=== PATIENT | female | born 1960 ===

== ENCOUNTER 2017-04-28 19:37 | Emergency (ER) | payer MEDICARE, OTHER ==
--- NOTE | 2017-04-28 20:57 | C.PDOC ---
History Of Present Illness 56 y/o female presents for evaluation of swollen bug bites which have been worsening over the past 5 days. was on a cruise in [place], where she initially noticed the bug bites to her right buttock region and left lower abdomen. Patient notes they were initially quarter-sized and red. Admits she scratched them, popping the lesions, which have been draining since then. No fever, chills, nausea, vomiting, or diarrhea. Now complaining of pain and drainage at the site of the bites. PMD: Dr. Nancy Crum Time Seen by Provider: 04/28/17 20:56 Chief Complaint (Nursing): Abnormal Skin Integrity History Per: Patient History/Exam Limitations: no limitations Onset/Duration Of Symptoms: Worse Since (5 days ago) Current Symptoms Are (Timing): Still Present Location Of Injury: Right: Buttock, Left: Abdomen Quality Of Symptoms: Painful, Itching, Swollen, Draining Severity: Moderate Recent travel outside of the [place]: Yes (to [place]) Past Medical History Reviewed: Historical Data, Nursing Documentation, Vital Signs Vital Signs: Last Vital Signs Temp 98 F 04/28/17 20:25 Pulse 89 04/28/17 20:25 Resp 20 04/28/17 20:25 BP 153/84 H 04/28/17 20:25 Pulse Ox 99 04/28/17 21:33 - Medical History PMH: Diabetes, HTN Family History: States: No Known Family Hx - Social History Hx Alcohol Use: Yes Hx Substance Use: No - Immunization History Hx Tetanus Toxoid Vaccination: No Hx Influenza Vaccination: No Hx Pneumococcal Vaccination: No Review Of Systems Constitutional: Negative for: Fever, Chills Gastrointestinal: Negative for: Nausea, Vomiting, Diarrhea Skin: Positive for: Lesions (swollen, itchy lesions to right buttock and left abdomen, + drainage) Physical Exam - Physical Exam Appears: Non-toxic, No Acute Distress Skin: Warm, Dry, Other (Right buttock: 10 cm erythematous, indurated area with central purulent drainage. No fluctuance noted. Left lower abdomen: 5 cm erythematous region with induration, non-fluctuant, with some purulent drainage noted) Head: Normacephalic Eye(s): bilateral: Normal Inspection Oral Mucosa: Moist Neck: Trachea Midline, Supple Chest: Symmetrical Cardiovascular: Rhythm Regular Respiratory: No Rales, No Rhonchi, No Wheezing Gastrointestinal/Abdominal: Soft, No Tenderness, No Distention Back: Normal Inspection Extremity: Normal ROM Extremity: Bilateral: Atraumatic, Normal Color And Temperature Neurological/Psych: Oriented x3 Gait: Steady ED Course And Treatment - Laboratory Results Result Diagrams: 04/28/17 22:18 04/28/17 22:18 O2 Sat by Pulse Oximetry: 99 (RA) Pulse Ox Interpretation: Normal Progress Note: Ordered blood work and VBG. Started patient on IV fluids, Zosyn, and Vancomycin. Reevaluation Time: 23:56 Reassessment Condition: Improved Disposition Counseled Patient/Family Regarding: Studies Performed, Diagnosis, Need For Followup, Rx Given - Disposition Referrals: Nancy Crum MD [Staff Provider] - Disposition: HOME/ ROUTINE Disposition Time: 20:57 Condition: FAIR Additional Instructions: Please return if symptoms recur Prescriptions: Cephalexin [Keflex] 500 mg PO QID #28 capsule Sulfamethoxazole/Trimethoprim [Bactrim DS 800 mg-160 mg] 1 tab PO BID #14 tab Instructions: Skin Abscess Forms: [employer] (Niuean) - Clinical Impression Clinical Impression: Abscess - Scribe Statement The provider has reviewed the documentation as recorded by the Scribe (Rebekah Ocasio) Provider Attestation: All medical record entries made by the Scribe were at my direction and personally dictated by me. I have reviewed the chart and agree that the record accurately reflects my personal performance of the history, physical exam, medical decision making, and the department course for this patient. I have also personally directed, reviewed, and agree with the discharge instructions and disposition.
[2017-04-28] MEDS ORDERED: Piperacillin/Tazobact 3.375 GM in Sodium Chloride 100 ML IVPB STA (21:15)
[2017-04-28] MEDS ORDERED: Sodium Chloride 0.9% 1,000 ML IV ONE (21:15)
[2017-04-28 22:18] LABS: VENOUS BLOOD GAS BASE EXCESS -1.3 mmol/L (0.0-2.0); VENOUS BLOOD GAS PCO2 43 mmHg (40-60); VENOUS BLOOD GAS PO2 24 mm/Hg (30-55); VENOUS BLOOD PH 7.36 (7.32-7.43)
[2017-04-28 22:23] LABS: BASO # 0.1 K/uL (0.0-0.2); BASO % 0.9 % (0.0-2.0); EOS # 0.3 K/uL (0.0-0.7); EOS % 4.1 % (0.0-4.0); HEMOGLOBIN 12.7 g/dL (11.0-16.0); LYMPH # 2.6 K/uL (1.0-4.3); LYMPH % 34.6 % (20.0-40.0); MEAN CELL VOLUME 84.3 fL (81.0-99.0); MEAN CORPUSCULAR HEMOGLOBIN 28.2 pg (27.0-31.0); MEAN CORPUSCULAR HGB CONC 33.5 g/dL (33.0-37.0); MEAN PLATELET VOLUME 8.8 fL (7.2-11.7); MONO # 0.6 K/uL (0.0-0.8); MONO % 7.5 % (0.0-10.0); NEUT % 52.9 % (50.0-75.0); RBC 4.51 Mil/uL (3.80-5.20); RED CELL DISTRIBUTION WIDTH 13.3 % (11.5-14.5); WHITE BLOOD COUNT 7.5 K/uL (4.8-10.8)
[2017-04-28] MEDS ORDERED: Sodium Chloride 0.9% 1,000 ML ONE (22:32)
[2017-04-28] MEDS ORDERED: Piperacillin/Tazobact 3.375 gm 100 ML IVPB ONE (22:33)
[2017-04-28 22:41] LABS: BLOOD UREA NITROGEN 23 mg/dL (7-17); CALCIUM 9.6 mg/dl (8.6-10.4); GFR AFRICAN-AMERICAN > 60; GFR NON-AFRICAN AMERICAN 51
[2017-04-28] MEDS ORDERED: Vancomycin 1 gm/NS 200 ml 1 GM/200 ML BAG IVPB ONE (23:00)
[2017-04-29 01:52] VITALS: BP 123/81; PULSE 67; RESP 16; TEMP 97.8; O2SAT 100
== END 2017-04-29 01:52 | disposition home or self-care (01) ==
LOC: C.ER 19:37
DX: L02.31 Cutaneous abscess of buttock (principal); L02.211 Cutaneous abscess of abdominal wall
CPT/HCPCS: 80048; 82803; 85025; 96365; 96366; 96367; 99283; J2543; J3370; J7040; J7050

== ENCOUNTER 2017-05-13 16:15 | Inpatient (IN) | payer MEDICARE, OTHER ==
[2017-05-13] MEDS ORDERED: Sodium Chloride 0.9% 1,000 ML IV ONE (17:00)
--- NOTE | 2017-05-13 17:17 | C.PDOC ---
History Of Present Illness Pt likely had insect bites while on vacation in [place]. She was seen here 2 weeks ago and given course of oral antibiotics with improvement of the abdominal lesion, however the buttock lesion is still painful, open and draining. Time Seen by Provider: 05/13/17 16:48 Chief Complaint (Nursing): Abnormal Skin Integrity History Per: Patient Onset/Duration Of Symptoms: Days (about 3 weeks) Current Symptoms Are (Timing): Still Present Location Of Injury: Right: Buttock, Left: Abdomen (lower) Quality Of Symptoms: Painful, Swollen, Draining Severity: Moderate Additional History Per: Prior Records Past Medical History Reviewed: Historical Data, Nursing Documentation, Vital Signs Vital Signs: Last Vital Signs Temp 98 F 05/13/17 16:34 Pulse 96 H 05/13/17 16:34 Resp 18 05/13/17 16:34 BP 150/93 H 05/13/17 16:34 Pulse Ox 99 05/13/17 17:18 - Medical History PMH: Diabetes, HTN Other Surgeries: Hysterectomy Family History: States: Unknown Family Hx - Social History Hx Alcohol Use: Yes Hx Substance Use: No - Immunization History Hx Tetanus Toxoid Vaccination: No Hx Influenza Vaccination: No Hx Pneumococcal Vaccination: No Review Of Systems Except As Marked, All Systems Reviewed And Found Negative. Constitutional: Negative for: Fever Eyes: Negative for: Eyelid Inflammation, Redness ENT: Negative for: Mouth Pain, Mouth Swelling, Throat Pain, Throat Swelling Cardiovascular: Negative for: Chest Pain Respiratory: Negative for: Shortness of Breath Gastrointestinal: Negative for: Vomiting, Abdominal Pain Genitourinary: Negative for: Dysuria Musculoskeletal: Negative for: Neck Pain Skin: Positive for: Lesions Neurological: Negative for: Weakness, Numbness, Seizures, Altered Mental Status , Headache Physical Exam - Physical Exam Appears: Non-toxic, No Acute Distress Skin: Warm, Other (Open wound with surrounding induration on right buttock. Small area of induration on lower abdomen. ) Head: Atraumatic, Normacephalic Eye(s): bilateral: Normal Inspection, PERRL, EOMI Neck: Normal ROM, Supple Cardiovascular: Rhythm Regular Respiratory: Normal Breath Sounds, No Accessory Muscle Use Gastrointestinal/Abdominal: Soft, No Tenderness Back: No CVA Tenderness Extremity: Normal ROM Neurological/Psych: Oriented x3, Normal Motor, Normal Sensation ED Course And Treatment - Laboratory Results Result Diagrams: 05/13/17 17:23 05/13/17 17:23 O2 Sat by Pulse Oximetry: 99 Pulse Ox Interpretation: Normal Progress - Interventions Interventions:: Observation, Intravenous fluid - Medications Administered Intravenous: Other (Abx) - Data Reviewed Data Reviewed: Lab, Old records - Continuity of Care Discussed patient case with:: Patient, ED Nurse, PMD - Patient Plan Patient Plan: Admission Disposition Discussed With DrEusebio: Nancy Crum Comment: He wants pt admitted to the hospital on his service for further evaluaiton and treatment. He wants pt started on IV antibiotics (Zosyn and Vanco ). Doctor Will See Patient In The: Hospital Counseled Patient/Family Regarding: Studies Performed, Diagnosis - Disposition Disposition: HOSPITALIZED Disposition Time: 18:55 Condition: FAIR - Clinical Impression Clinical Impression: Infected wound, Failure of outpatient treatment, Diabetes mellitus
[2017-05-13 17:26] LABS: BASO # 0.1 K/uL (0.0-0.2); BASO % 0.9 % (0.0-2.0); EOS # 0.1 K/uL (0.0-0.7); EOS % 1.9 % (0.0-4.0); LYMPH # 2.2 K/uL (1.0-4.3); LYMPH % 37.1 % (20.0-40.0); MEAN CORPUSCULAR HEMOGLOBIN 27.7 pg (27.0-31.0); MEAN PLATELET VOLUME 9.2 fL (7.2-11.7); MONO # 0.2 K/uL (0.0-0.8); MONO % 3.6 % (0.0-10.0); NEUT # 3.4 K/uL (1.8-7.0); NEUT % 56.5 % (50.0-75.0); NRBC % 0.1 % (0.0-2.0); RBC 4.33 Mil/uL (3.80-5.20); WHITE BLOOD COUNT 5.9 K/uL (4.8-10.8)
[2017-05-13] MEDS ORDERED: Sodium Chloride 0.9% 1,000 ML ONE (17:28)
[2017-05-13 17:37] LABS: INR 1.1; PROTHROMBIN TIME 12.4 SECONDS (9.7-12.2)
[2017-05-13 17:43] LABS: ALB/GLOB RATIO 1.2 (1.0-2.1); ALBUMIN 4.2 g/dL (3.5-5.0); ALT/SGPT 41 U/L (9-52); AST/SGOT 38 U/L (14-36); BLOOD UREA NITROGEN 21 mg/dL (7-17); CALCIUM 9.2 mg/dl (8.6-10.4); GFR AFRICAN-AMERICAN > 60; GFR NON-AFRICAN AMERICAN 57
[2017-05-13] MEDS ORDERED: Vancomycin 1 GM 1 GM/250 ML BAG IVPB STA (18:50)
[2017-05-13] MEDS ORDERED: Piperacillin/Tazobact 3.375 gm 100 ML IVPB STA (18:50)
[2017-05-13] MEDS ORDERED: Vancomycin 1 gm/NS 200 ml 1 GM/200 ML BAG IVPB ONE (19:00)
[2017-05-13] MEDS ORDERED: Piperacill/Tazo 3.375gm in Dex 3.375 GM/50 ML BAG IVPB ONE (19:00)
[2017-05-13] MEDS ORDERED: Pneumococcal 23-Valent Vaccine IM ONE (22:54)
[2017-05-13] MEDS ORDERED: Influenza Vaccine 60 mcg/0.5 mL SYR (4YR UP) IM ONE (22:55)
[2017-05-14] MEDS: Piperacill/Tazo 3.375gm in Dex 3.375 GM/50 ML BAG IVPB SCH ×4 (03:23→21:14)
[2017-05-14] MEDS: Vancomycin 750 MG in Dextrose 5% In Water 150 ML IVPB SCH ×2 (08:41→19:25)
--- NOTE | 2017-05-14 12:26 | CP.PCM.CON ---
History of Present Illness - History of Present Illness History of Present Illness: Sugery Consult note. Dr. Yan. 56yo F with PMHx of HTN, DM here for evaluation of right hip wound and left lower abdominal wall wound. Patient states that she was traveling to [place] about 1 month ago and noted bug bites (unknown bug) to the left lower abdominal wall and right hip. She noted the area become raised and started to drain and came tin to the ER for evaluation on 04/28/17. At that time she was given Keflex and Bactrim, she noted improvement of drainage of the abdominal wall wound but did not get complete resolution of the right hip wound. She was evaluated by her PMD, Dr. Crum yesterday and was asked to come in for further evaluation. Right hip wound continues to drain purulent material. She denies any fevers or chills. No N/V/D. No CP/SOB. No urinary complaints. No bowel changes. PMD: Dr. Crum PMHx: HTN, DM PSHx: Hysterectomy, Appy, Left Shoulder surgery, Left thumb surgery, Left knee surgery x2 Family Hx: Social Hx: Denies Tobacco. Occasional ETOH. Denies drugs NKDA Review of Systems - Review of Systems All systems: reviewed and no additional remarkable complaints except - Constitutional Constitutional: absent: Chills, Fever - EENT Nose/Mouth/Throat: absent: Nasal Congestion - Cardiovascular Cardiovascular: absent: Chest Pain, Dyspnea - Respiratory Respiratory: absent: Dyspnea - Gastrointestinal Gastrointestinal: absent: Abdominal Pain, Constipation, Diarrhea, Nausea, Vomiting - Genitourinary Genitourinary: absent: Dysuria - Integumentary Integumentary: Skin Ulcer, Wounds (right hip wound) Past Patient History - Past Medical History & Family History Past Medical History?: Yes - Past Social History Smoking Status: Never Smoked Alcohol: Occasional Drugs: Denies - CARDIAC Hx Hypertension: Yes - ENDOCRINE/METABOLIC Hx Endocrine Disorders: Yes Hx Diabetes Mellitus Type 2: Yes - MUSCULOSKELETAL/RHEUMATOLOGICAL Hx Falls: No - PSYCHIATRIC Hx Substance Use: No - SURGICAL HISTORY Hx Surgeries: Yes Hx Hysterectomy: Yes Other/Comment: LEFT SHOULDER, LEFT KNEE (2X) - ANESTHESIA Hx Anesthesia: Yes Hx Anesthesia Reactions: No Meds Allergies/Adverse Reactions: Allergies Allergy/AdvReac Type Severity Reaction Status Date / Time No Known Allergies Allergy Verified 05/13/17 16:37 - Medications Medications: Current Medications Aspirin (Ecotrin) 81 mg PO DAILY [facility] Last Admin: 05/14/17 09:48 Dose: 81 mg Ergocalciferol (Drisdol 50,000 Intl Units Cap) 1 cap PO Q7D [facility] Heparin Sodium (Porcine) (Heparin) 5,000 units SC Q12 [facility] Last Admin: 05/14/17 09:48 Dose: 5,000 units Vancomycin HCl 750 mg/ (Dextrose) 150 mls @ 133 mls/hr IVPB Q12H [facility] PRN Reason: Protocol Last Admin: 05/14/17 08:41 Dose: 133 mls/hr Piperacillin Sod/Tazobactam Sod (Zosyn 3.375 Gm Iv Premix) 3.375 gm in 50 mls @ 100 mls/hr IVPB Q6H [facility] PRN Reason: Protocol Last Admin: 05/14/17 08:25 Dose: 100 mls/hr Losartan Potassium (Cozaar) 50 mg PO DAILY [facility] Last Admin: 05/14/17 09:48 Dose: 50 mg Metformin HCl (Glucophage) 500 mg PO BIDPC [facility] Last Admin: 05/14/17 09:48 Dose: 500 mg Rosuvastatin Calcium (Crestor) 10 mg PO HS [facility] Last Admin: 05/13/17 21:50 Dose: 10 mg Physical Exam - Constitutional Appears: Well, Non-toxic, No Acute Distress - Head Exam Head Exam: ATRAUMATIC, NORMAL INSPECTION, NORMOCEPHALIC - Eye Exam Eye Exam: EOMI, Normal appearance - ENT Exam ENT Exam: Mucous Membranes Moist - Respiratory Exam Respiratory Exam: NORMAL BREATHING PATTERN. absent: Accessory Muscle Use, Respiratory Distress - Cardiovascular Exam Cardiovascular Exam: absent: JVD - GI/Abdominal Exam GI & Abdominal Exam: Soft. absent: Distended, Firm, Guarding, Tenderness - Extremities Exam Extremities exam: Positive for: normal inspection. Negative for: calf tenderness - Neurological Exam Neurological exam: Alert, Oriented x3 - Skin Additional comments: Left lower abdominal wall: small area a induration. no erythema. Mild tenderness to palpation Right Hip Wound: Superficial necrotic skin wound. No erythema. Tender to palpation. Active purulent drainage noted. Results - Vital Signs Recent Vital Signs: Last Vital Signs Temp 98.4 F 05/14/17 08:28 Pulse 78 05/14/17 08:28 Resp 20 05/14/17 08:28 BP 131/78 05/14/17 08:28 Pulse Ox 97 05/14/17 08:28 - Labs Result Diagrams: 05/13/17 17:23 05/13/17 17:23 Labs: Laboratory Results - last 24 hr 05/13/17 05/13/17 05/13/17 17:23 17:23 17:23 WBC 5.9 RBC 4.33 Hgb 12.0 Hct 36.4 MCV 84.0 MCH 27.7 MCHC 33.0 RDW 13.0 Plt Count 219 D MPV 9.2 Neut % (Auto) 56.5 Lymph % (Auto) 37.1 [place] % (Auto) 3.6 Eos % (Auto) 1.9 Baso % (Auto) 0.9 Neut # (Auto) 3.4 Lymph # (Auto) 2.2 [place] # (Auto) 0.2 Eos # (Auto) 0.1 Baso # (Auto) 0.1 PT 12.4 H INR 1.1 APTT 28 Sodium 143 Potassium 3.8 Chloride 103 Carbon Dioxide 28 Anion Gap 16 BUN 21 H Creatinine 1.0 Est GFR ( Amer) > 60 Est GFR (Non-Af Amer) 57 POC Glucose (mg/dL) Random Glucose 186 H Calcium 9.2 Total Bilirubin 0.5 AST 38 H ALT 41 Alkaline Phosphatase 36 L Total Protein 7.9 Albumin 4.2 Globulin 3.7 Albumin/Globulin Ratio 1.2 Serum Ketones Negative 05/13/17 05/14/17 05/14/17 21:13 07:16 10:53 WBC RBC Hgb Hct MCV MCH MCHC RDW Plt Count MPV Neut % (Auto) Lymph % (Auto) [place] % (Auto) Eos % (Auto) Baso % (Auto) Neut # (Auto) Lymph # (Auto) [place] # (Auto) Eos # (Auto) Baso # (Auto) PT INR APTT Sodium Potassium Chloride Carbon Dioxide Anion Gap BUN Creatinine Est GFR ( Amer) Est GFR (Non-Af Amer) POC Glucose (mg/dL) 169 H 142 H 156 H Random Glucose Calcium Total Bilirubin AST ALT Alkaline Phosphatase Total Protein Albumin Globulin Albumin/Globulin Ratio Serum Ketones Assessment & Plan - Assessment and Plan (Free Text) Assessment: 56yo F with Right hip wound Plan: - Will perform bedside wound debridement today - Continue Abx - Pain management - Daily Wound care Further recs as per Dr. Farrah Mark PGY1 surgery pager: [phone]
--- NOTE | 2017-05-14 17:37 | PCM.SURG1 ---
Surgeon's Initial Post Op Note - Surgeon's Notes Surgeon: Dr. Yan Litigation Assistant: Deedee PGY1 Type of Anesthesia: Local Pre-Operative Diagnosis: Right Hip Wound Operative Findings: Approx 3cm x 4cm superficial necrotic wound right hip. Timeout performed with nurse present within the room. Patient placed in prone position. Prepped with betadine swab and draped in the usual sterile fashion. 10cc of 1% lidocaine was used for local anesthesia. #15 scalpel used for sharp debridement. Dressing with sterile gauze and island dressing used. Patient tolerated procedure well. No immediate complications noted. Post-Operative Diagnosis: same Operation Performed: Bedside Debridement of Right hip wound Specimen/Specimens Removed: none Estimated Blood Loss: EBL {In ML}: 5 Blood Products Given: N/A Drains Used: No Drains Post-Op Condition: Good Date of Surgery/Procedure: 05/14/17 Time of Surgery/Procedure: 17:37
[2017-05-15] MEDS: Piperacill/Tazo 3.375gm in Dex 3.375 GM/50 ML BAG IVPB SCH ×4 (03:24→21:46)
--- NOTE | 2017-05-15 05:23 | CP.PCM.PN ---
Subjective - Date & Time of Evaluation Date of Evaluation: 05/15/17 Time of Evaluation: 07:00 - Subjective Subjective: General surgery progress note for Dr. Yan-Georgina Sin, PGY-1 Pt S & E at bedside. Pt reports no right hip pain overnight. No other complaints, denies N & V, F & C. Objective - Vital Signs/Intake and Output Vital Signs (last 24 hours): Temp Pulse Resp BP Pulse Ox 98.2 F 75 20 131/82 99 05/15/17 00:00 05/15/17 00:00 05/15/17 00:00 05/15/17 00:00 05/15/17 00:00 Intake and Output: 05/14/17 05/15/17 18:59 06:59 Intake Total 550 550 Balance 550 550 - Medications Medications: Current Medications Acetaminophen (Tylenol 325mg Tab) 650 mg PO Q6 PRN PRN Reason: Pain, moderate (4-7) Last Admin: 05/15/17 04:12 Dose: 650 mg Aspirin (Ecotrin) 81 mg PO DAILY [facility] Last Admin: 05/14/17 09:48 Dose: 81 mg Ergocalciferol (Drisdol 50,000 Intl Units Cap) 1 cap PO Q7D [facility] Heparin Sodium (Porcine) (Heparin) 5,000 units SC Q12 [facility] Last Admin: 05/14/17 21:25 Dose: 5,000 units Vancomycin HCl 750 mg/ (Dextrose) 150 mls @ 133 mls/hr IVPB Q12H [facility] PRN Reason: Protocol Last Admin: 05/14/17 19:25 Dose: 133 mls/hr Piperacillin Sod/Tazobactam Sod (Zosyn 3.375 Gm Iv Premix) 3.375 gm in 50 mls @ 100 mls/hr IVPB Q6H [facility] PRN Reason: Protocol Last Admin: 05/15/17 03:24 Dose: 100 mls/hr Losartan Potassium (Cozaar) 50 mg PO DAILY [facility] Last Admin: 05/14/17 09:48 Dose: 50 mg Metformin HCl (Glucophage) 500 mg PO BIDPC [facility] Last Admin: 05/14/17 18:01 Dose: 500 mg Rosuvastatin Calcium (Crestor) 10 mg PO HS [facility] Last Admin: 05/14/17 21:25 Dose: 10 mg - Labs Labs: 05/13/17 17:23 05/13/17 17:23 PT 12.4 SECONDS (9.7-12.2) H 05/13/17 17:23 INR 1.1 05/13/17 17:23 APTT 28 SECONDS (21-34) 05/13/17 17:23 - Constitutional Appears: Non-toxic, No Acute Distress - Head Exam Head Exam: ATRAUMATIC, NORMAL INSPECTION, NORMOCEPHALIC - Eye Exam Eye Exam: EOMI, Normal appearance - ENT Exam ENT Exam: Mucous Membranes Moist, Normal Exam - Neck Exam Neck Exam: Full ROM, Normal Inspection - Respiratory Exam Respiratory Exam: NORMAL BREATHING PATTERN - Cardiovascular Exam Cardiovascular Exam: REGULAR RHYTHM, +S1, +S2 - GI/Abdominal Exam GI & Abdominal Exam: Soft. absent: Distended, Tenderness - Extremities Exam Extremities Exam: absent: Tenderness Additional comments: Right hip with superficial wound, granulation tissue present, some bleeding with dressing change, no necrotic tissue visualized - Neurological Exam Neurological Exam: Alert, Awake, CN II-XII Intact, Oriented x3 - Psychiatric Exam Psychiatric exam: Normal Affect, Normal Mood - Skin Skin Exam: Dry, Warm Assessment and Plan - Assessment and Plan (Free Text) Assessment: 56F w/Right hip wound s/p bedside debridement POD#1 Plan: Cont Abx Local wound care- wet to dry dressing changed Cont pain mgmt Encourage OOBTC Encourage ambulation Further recs per attending evaluation Will RADHA attending January, PGY-1
[2017-05-15] MEDS: Vancomycin 750 MG in Dextrose 5% In Water 150 ML IVPB SCH ×2 (08:25→21:47)
--- NOTE | 2017-05-16 00:59 | PN ---
DATE: 05/15/2017. SUBJECTIVE: The patient is seen today on 05/15/2017. She is on IV antibiotics day #3. PHYSICAL EXAMINATION: VITAL SIGNS: Blood pressure 136/87, temperature 97, respiratory rate 20 and pulse 73. HEENT: Pupils equal, reactive to light. Normal appearing mucosa of the conjunctivae, oropharynx and nasal membrane mucosa. NECK: Supple. No JVD. No carotid bruit. No lymph node. No thyromegaly. CHEST AND LUNGS: Bilateral symmetrical expansion. Good air exchange. No rales, no rhonchi. CARDIOVASCULAR SYSTEM: PMI not localized. S1, S2. No additional sounds. ABDOMEN: Normoactive bowel sounds. No tenderness. No organomegaly. No masses. EXTREMITIES: No cyanosis, no clubbing, no edema. Status post debridement of the right gluteal area necrotic purulent ulcer. FIELD SALES MANAGER: Alert, awake, oriented x3. No neurological deficit could be appreciated. ASSESSMENT: 1. Infected right gluteal area ulcer. 2. Type 2 diabetes mellitus. 3. Hypertension. PLAN: Continue current IV antibiotics and follow surgical recommendations. Nancy Crum MD
[2017-05-16] MEDS: Piperacill/Tazo 3.375gm in Dex 3.375 GM/50 ML BAG IVPB SCH ×4 (03:30→20:49)
[2017-05-16] MEDS: Vancomycin 750 MG in Dextrose 5% In Water 150 ML IVPB SCH ×2 (08:13→23:36)
--- NOTE | 2017-05-16 09:11 | CP.PCM.PN ---
Subjective - Date & Time of Evaluation Date of Evaluation: 05/16/17 Time of Evaluation: 07:08 - Subjective Subjective: Surgery progress note. Dr. Yan Pt seen and examined at bedside. No acute events overnight. Denies any new complaints. No F/C. Right hip wound pain tolerable. Objective - Vital Signs/Intake and Output Vital Signs (last 24 hours): Temp Pulse Resp BP Pulse Ox 98.1 F 66 20 147/88 98 05/16/17 08:10 05/16/17 08:10 05/16/17 08:10 05/16/17 08:10 05/16/17 08:10 Intake and Output: 05/16/17 05/16/17 06:59 18:59 Intake Total Balance - Medications Medications: Current Medications Acetaminophen (Tylenol 325mg Tab) 650 mg PO Q6 PRN PRN Reason: Pain, moderate (4-7) Last Admin: 05/15/17 04:12 Dose: 650 mg Aspirin (Ecotrin) 81 mg PO DAILY [facility] Last Admin: 05/15/17 09:58 Dose: 81 mg Ergocalciferol (Drisdol 50,000 Intl Units Cap) 1 cap PO Q7D [facility] Heparin Sodium (Porcine) (Heparin) 5,000 units SC Q12 [facility] Last Admin: 05/15/17 21:47 Dose: Not Given Vancomycin HCl 750 mg/ (Dextrose) 150 mls @ 133 mls/hr IVPB Q12H [facility] PRN Reason: Protocol Last Admin: 05/16/17 08:13 Dose: 133 mls/hr Piperacillin Sod/Tazobactam Sod (Zosyn 3.375 Gm Iv Premix) 3.375 gm in 50 mls @ 100 mls/hr IVPB Q6H [facility] PRN Reason: Protocol Last Admin: 05/16/17 03:30 Dose: 100 mls/hr Losartan Potassium (Cozaar) 50 mg PO DAILY [facility] Last Admin: 05/15/17 09:57 Dose: 50 mg Metformin HCl (Glucophage) 500 mg PO BIDPC [facility] Last Admin: 05/15/17 18:17 Dose: 500 mg Rosuvastatin Calcium (Crestor) 10 mg PO HS [facility] Last Admin: 05/15/17 21:48 Dose: 10 mg - Labs Labs: 05/13/17 17:23 05/13/17 17:23 PT 12.4 SECONDS (9.7-12.2) H 05/13/17 17:23 INR 1.1 05/13/17 17:23 APTT 28 SECONDS (21-34) 05/13/17 17:23 - Constitutional Appears: Non-toxic, No Acute Distress - Head Exam Head Exam: ATRAUMATIC, NORMAL INSPECTION, NORMOCEPHALIC - Eye Exam Eye Exam: EOMI, Normal appearance - ENT Exam ENT Exam: Mucous Membranes Moist - Respiratory Exam Respiratory Exam: NORMAL BREATHING PATTERN. absent: Accessory Muscle Use, Respiratory Distress - Cardiovascular Exam Cardiovascular Exam: absent: JVD - GI/Abdominal Exam GI & Abdominal Exam: Soft. absent: Distended, Firm, Guarding, Rigid, Tenderness - Extremities Exam Extremities Exam: Normal Inspection. absent: Calf Tenderness Additional comments: Right hip wound dressing intact. - Neurological Exam Neurological Exam: Alert, Awake, Oriented x3 - Psychiatric Exam Psychiatric exam: Normal Affect, Normal Mood Assessment and Plan - Assessment and Plan (Free Text) Assessment: 56yo F s/p bedside debridement of Right hip wound. POD2 Plan: - Nursing staff to continue at least once daily dressing changes: wet to dry. Change more often as needed. - Encourage ambulation - Pain management - Continue Abx - F/u with Dr. Yan in office upon discharge in 10 days. Call for appointment - Please re-consult as necessary Further recs as per Dr. Farrah Mark PGY1 surgery pager: [phone]
--- NOTE | 2017-05-16 23:59 | PN ---
DATE: 05/16/2017 SUBJECTIVE: The patient is seen today, 05/16/2017. She is not in any cardiopulmonary distress. The patient is on IV antibiotics day #4. OBJECTIVE: VITAL SIGNS: Blood pressure 125/65, temperature 97.9, respiratory rate 20, and pulse 66. HEENT: Pupils equal and reactive to light. Normal-appearing mucosa of the conjunctivae, oropharynx, and nasal membrane mucosa. NECK: Supple. No JVD. No carotid bruit. No lymph node. No thyromegaly. CHEST AND LUNGS: Bilateral symmetrical expansion. Good air exchange. No rales, no rhonchi. CARDIOVASCULAR SYSTEM: PMI not localized. S1, S2. No additional sounds. ABDOMEN: Normoactive bowel sounds. No tenderness. No organomegaly. No masses. EXTREMITIES: No cyanosis, no clubbing, no edema. SLEEVER: Alert, awake, and oriented x2. No neurological deficit could be appreciated. ASSESSMENT: 1. Infected wound on the left gluteal area with cellulitis, status post incision and drainage and debridement. 2. Type 2 diabetes mellitus. 3. Hypertension. PLAN: Continue current IV antibiotics and if the patient remained stable until tomorrow, will be discharged home on p.o. antibiotics and local wound treatment as an outpatient. Nancy Crum MD
[2017-05-17] MEDS: Piperacill/Tazo 3.375gm in Dex 3.375 GM/50 ML BAG IVPB SCH ×3 (03:04→14:32)
[2017-05-17 07:40] VITALS: RESP 20
[2017-05-17] MEDS: Vancomycin 750 MG in Dextrose 5% In Water 150 ML IVPB SCH (08:28)
--- NOTE | 2017-05-17 10:53 | HP ---
HISTORY OF PRESENT ILLNESS: This is a 56-year-old female who is known to me with multiple medical problems, presented to the office on the day of admission with pain on the right gluteal area. The patient stated that she had an insect bite followed by a small boil that complicated and was extending around and worsening with purulent discharge. The patient was sent to emergency room where she was evaluated and admitted for further management. The patient denied to have any similar symptoms before. Other review of systems is negative. ALLERGIES: NO KNOWN ALLERGY. MEDICATIONS: As per MAR. SOCIAL HISTORY: No history for smoking, EtOH, or substance abuse. FAMILY HISTORY: Noncontributory. PHYSICAL EXAMINATION: VITAL SIGNS: Blood pressure 136/80, temperature 97.9, respiratory rate 20, and pulse 74. HEENT: Pupils equal, reactive to light. Normal-appearing mucosa of the conjunctivae, oropharynx, and nasal membrane mucosa. NECK: Supple. No JVD. No carotid bruit. No lymph node. No thyromegaly. CHEST/LUNGS: Bilateral symmetrical expansion. Good air exchange. No rales, no rhonchi. CARDIOVASCULAR: PMI not localized. S1, S2. No additional sounds. ABDOMEN: Normoactive bowel sounds. No tenderness. No organomegaly. No masses. EXTREMITIES: No cyanosis, no clubbing, no edema. Right gluteal area, the patient has about a 3 x 3 cm area of adherent purulent discharge with erythematous surrounding area. FILM RECORDIST: Alert, awake, oriented x3. No neurological deficit could be appreciated. ASSESSMENT: 1. Cellulitis with infected ulcerative lesion with purulent discharge in the right gluteal area. 2. Type 2 diabetes mellitus. 3. Hypertension. 4. Hypercholesterolemia. 5. Degenerative spine disease. PLAN: Surgical consult. Continue Zosyn and vancomycin that were started since admission. Continue Accu-Cheks with insulin coverage as needed. Nancy Crum MD
[2017-05-17 11:29] LABS: EOS # 0.1 K/uL (0.0-0.7); EOS % 3.1 % (0.0-4.0); HEMOGLOBIN 12.2 g/dL (11.0-16.0); LYMPH # 1.9 K/uL (1.0-4.3); LYMPH % 43.7 % (20.0-40.0); MEAN CELL VOLUME 83.6 fL (81.0-99.0); MEAN CORPUSCULAR HEMOGLOBIN 28.1 pg (27.0-31.0); MEAN CORPUSCULAR HGB CONC 33.6 g/dL (33.0-37.0); MEAN PLATELET VOLUME 9.5 fL (7.2-11.7); MONO # 0.3 K/uL (0.0-0.8); MONO % 6.8 % (0.0-10.0); NEUT % 45.4 % (50.0-75.0); NRBC % 0.1 % (0.0-2.0); RBC 4.32 Mil/uL (3.80-5.20); RED CELL DISTRIBUTION WIDTH 13.3 % (11.5-14.5); WHITE BLOOD COUNT 4.4 K/uL (4.8-10.8)
[2017-05-17 11:35] VITALS: BP 151/84; PULSE 59; TEMP 97.8; O2SAT 100
[2017-05-17 11:43] LABS: ALB/GLOB RATIO 1.2 (1.0-2.1); ALT/SGPT 69 U/L (9-52); AST/SGOT 72 U/L (14-36); BLOOD UREA NITROGEN 18 mg/dL (7-17); CALCIUM 9.2 mg/dl (8.6-10.4); GFR AFRICAN-AMERICAN > 60; GFR NON-AFRICAN AMERICAN 51
--- NOTE | 2017-05-17 14:13 | CP.PCM.PN ---
Subjective - Date & Time of Evaluation Date of Evaluation: 05/17/17 Time of Evaluation: 14:13 - Subjective Subjective: PATIENT IS AAOX3 DENIES ANY CHEST PAIN /SOB SITTING THE BED SIDE AND NO SIGN OF DISTRESS NOTED Objective - Vital Signs/Intake and Output Vital Signs (last 24 hours): Temp Pulse Resp BP Pulse Ox 97.8 F 59 L 20 151/84 H 100 05/17/17 09:20 05/17/17 09:20 05/17/17 09:20 05/17/17 09:20 05/17/17 09:20 Intake and Output: 05/17/17 05/17/17 06:59 18:59 Intake Total 550 Balance 550 - Medications Medications: Current Medications Acetaminophen (Tylenol 325mg Tab) 650 mg PO Q6 PRN PRN Reason: Pain, moderate (4-7) Last Admin: 05/15/17 04:12 Dose: 650 mg Aspirin (Ecotrin) 81 mg PO DAILY [facility] Last Admin: 05/17/17 10:01 Dose: 81 mg Ergocalciferol (Drisdol 50,000 Intl Units Cap) 1 cap PO Q7D [facility] Vancomycin HCl 750 mg/ (Dextrose) 150 mls @ 133 mls/hr IVPB Q12H FELICE PRN Reason: Protocol Last Admin: 05/17/17 08:28 Dose: 133 mls/hr Piperacillin Sod/Tazobactam Sod (Zosyn 3.375 Gm Iv Premix) 3.375 gm in 50 mls @ 100 mls/hr IVPB Q6H FELICE PRN Reason: Protocol Last Admin: 05/17/17 08:29 Dose: 100 mls/hr Losartan Potassium (Cozaar) 50 mg PO DAILY [facility] Last Admin: 05/17/17 10:01 Dose: 50 mg Metformin HCl (Glucophage) 500 mg PO BIDPC [facility] Last Admin: 05/17/17 09:55 Dose: 500 mg Rosuvastatin Calcium (Crestor) 10 mg PO HS [facility] Last Admin: 05/16/17 21:43 Dose: 10 mg - Labs Labs: 05/17/17 11:15 05/17/17 11:15 PT 12.4 SECONDS (9.7-12.2) H 05/13/17 17:23 INR 1.1 05/13/17 17:23 APTT 28 SECONDS (21-34) 05/13/17 17:23 Assessment and Plan - Assessment and Plan (Free Text) Assessment: PATIENT IS SEEN AND EXAMINED S/P WOUND DEBRITMENT DRESSING DRY AND INTACT PATIENT RETURN DEMONSTRATION HOW TO CHANGE THE DRESSING CORRECTLY WOUND CULT POSITIVE AND PATIENT WILL DC ON PO ABX PER PMD DISCUSS WITH DR SQUIRES WHO CLEAR PATIENT FOR DC FOLLOW UP WITH DR SQUIRES IN 1-2 WEEKS AT HIS OFFICE ---CALL FOR APPOINTMENT FOLLOW UP WITH DR OSBORN IN 10 DAYS AT HIS OFFICE --CALL FOR APPOINMENT CONTINUE ALL YOUR HOME MEDICATION NEW PRESCRIPTION GIVEN CLINDAMYCIN 300 MG BY MOUTH THREE TIME A DAY FOR 10 DAYS BACID 1 CAP BY MOUTH TWO TIMES A DAY FOR 10DAYS ACTIVITY TOLERATED DRESSING CHANGE DAILY WITH DRY DRESSING PER DR OSBORN CALL DR SQUIRES OR GO TO THE EMERGENCY ROOM IF SYMPTOMS RETURN OR WORSENING DISCUSS WITH PATIENT WHO AGREE AND VERBALIZED UNDERSTANDING
[2017-05-18] MEDS ORDERED: Ergocalciferol 50,000 Intl Units Cap PO SCH (10:00)
--- NOTE | 2017-05-18 18:32 | DS ---
REASON FOR ADMISSION: This is a 56-year-old female with history of multiple medical problems, who was admitted for cellulitis and infected wound of the right gluteal area. COURSE OF HOSPITALIZATION: The patient was admitted to medical floor and she had a surgical consultation done and the patient underwent bedside debridement of the wound. The patient was continued on Zosyn and vancomycin until the day of discharge. The patient remained afebrile and pain was decreasing and the patient was discharged on clindamycin 300 mg three times a day as the patient was found to have MRSA-positive wound culture. FINAL DIAGNOSES: 1. Infected wound of the right gluteal right tibia. 2. Cellulitis. 3. Type 2 diabetes mellitus. 4. Hypertension. [facility] MD Radames
== END 2017-05-17 16:10 | disposition home or self-care (01) | DRG 638 ==
LOC: C.ER 16:15 → C.9E 18:57 → C.3T 19:52 → C.5S 05-17 09:15
PROVIDERS: ADMIT Internal Medicine; ATTEND Internal Medicine
PROC: 0HB8XZZ Excision of Buttock Skin, External Approach (ICD-10-PCS; principal; 2017-05-14)
DX: E11.622 Type 2 diabetes mellitus with other skin ulcer (principal); L03.317 Cellulitis of buttock; L98.419 Non-pressure chronic ulcer of buttock with unspecified severity; I10 Essential (primary) hypertension; E78.00 Pure hypercholesterolemia, unspecified; M47.9 Spondylosis, unspecified; S30.860A Insect bite (nonvenomous) of lower back and pelvis, initial encounter; W57.XXXA Bitten or stung by nonvenomous insect and other nonvenomous arthropods, initial encounter